=== PATIENT | female | born 1995 | race Caucasian/White ===

== ENCOUNTER 2019-12-20 23:59 | Emergency (ER) | payer OTHER ==
[~2019-12-20] VITALS: Ht 160 cm; Wt 54.4 kg
[2019-12-21] VITALS: BP 117/69
--- NOTE | 2019-12-21 00:41 | NUR ---
PT DISCHARGED BACK TO [facility] LEARNING PROGRAM MANAGER TOBY KUMAR NUMBER [id number]. VSS. WRISTBAND REMOVED
--- NOTE | 2019-12-21 00:41 | NUR ---
NO NURSING INTERVENTIONS ORDERED BY CHAR MCMULLEN.
== END 2019-12-21 00:43 ==
LOC: MED 23:59
DX: F10.10 Alcohol abuse, uncomplicated (principal); Z02.89 Encounter for other administrative examinations
CPT/HCPCS: 99283